=== PATIENT | male | born 1975 | race American Indian/Alaskan Native ===

== ENCOUNTER 2021-05-03 06:02 | Day surgery (SDC) | payer BC ==
[~2021-05-03 06:02] MED LIST: LACTATED RINGERS 1,000 ML IV SCH; MIDAZOLAM 2 MG/2 ML INJ IV NR
[2021-05-03] MEDS ORDERED: FAMOTIDINE 20 MG/2 ML INJ IV ONE (07:25)
--- NOTE | 2021-05-03 07:25 | Anesthesia Consultation ---
Anesthesia Consult and Med Hx Date of service: 05/03/21 - Airway Anesthetic Teeth Evaluation: Good, Crowns ROM Head & Neck: Adequate Mental/Hyoid Distance: Adequate Mallampati Class: Class III Intubation Access Assessment: Possibly Difficult - Pre-Operative Health Status ASA Pre-Surgery Classification: ASA3 Proposed Anesthetic Plan: MAC - Pulmonary Hx Smoking: Yes (DAILY MARIJUANA) Hx Sleep Apnea: Yes (DX SLEEP APNEA WITH CPAP USE) - Cardiovascular System Hx Hypertension: ("WATCHING", NOT YET DX , NO MEDS) - Gastrointestinal Hx Gastroesophageal Reflux Disease: Yes (takes meds) - Endocrine Hx Liver Disease: Yes (FATTY LIVER) - Hematic Hx Anemia: No - Other Systems Hx Substance Use: Yes (DAILY MARIJUANA) Hx Cancer: No Hx Obesity: Yes (Morbid obesity, BMI 38.5)
--- NOTE | 2021-05-03 07:26 | Anesthesia Day of Surgery ---
Anesthesia Day of Surgery - Day of Surgery Patient Examined: Yes Patient H&P Reviewed: Yes Patient is NPO: Yes
[2021-05-03] MEDS ORDERED: ceFAZolin/STERILE WATER 2 GM/20 ML SYRINGE IV NR (07:30)
[2021-05-03] MEDS ORDERED: HYDROcodone/ACETAMINOPHEN 5-325 MG TAB PO PRN (07:30)
[2021-05-03] MEDS ORDERED: propofoL 200 MG/20 ML VIAL IV ONE ×2 (07:30→07:36)
[2021-05-03] MEDS ORDERED: HYDROmorphone 1 MG/1 ML INJ ONE (07:30)
[2021-05-03] MEDS ORDERED: MIDAZOLAM 2 MG/2 ML INJ ONE (07:30)
[2021-05-03] MEDS ORDERED: HYDROmorphone 1 MG/1 ML INJ IV PRN (07:30)
[2021-05-03] MEDS ORDERED: LIDOCAINE MPF (2%) 20 MG/1 ML VIAL 5 ML ONE (07:31)
[2021-05-03] MEDS ORDERED: BUPIVACAINE/PF (0.25%) 2.5 MG/ML 30 ML VIAL INFILTRATI ONE ×2 (07:36→08:21)
[2021-05-03] MEDS ORDERED: LIDOCAINE (1%) 10 MG/1 ML VIAL 20 ML MDV ONE (07:36)
[2021-05-03] MEDS ORDERED: ceFAZolin/Water 2 GM/20 ML 2 GM/20 ML SYRINGE IV ONE (07:47)
[2021-05-03] MEDS ORDERED: FAMOTIDINE 20 MG/2 ML INJ IV NR (08:00)
[2021-05-03] MEDS ORDERED: SODIUM CHLORIDE 0.9% IRR 1,500 ML BOTTLE IR ONE (08:21)
[2021-05-03] MEDS ORDERED: LIDOCAINE (1%) 10 MG/1 ML VIAL 20 ML MDV INFILTRATI ONE (08:21)
[2021-05-03] MEDS ORDERED: ONDANSETRON 4 MG/2 ML INJ ONE (08:45)
--- NOTE | 2021-05-03 08:58 | Short Stay Summary ---
Short Stay Documentation Date of service: 05/03/21 - History Principal diagnosis: soft tissue mass of upper back H&P: obtained from office - Allergies and Medications Current Medications: Allergies No Known Allergies Allergy (Verified 04/25/21 16:39) Home Medications Medication Instructions Recorded Confirmed Last Taken Type Famotidine [Pepcid] 20 mg PO DAILY 04/25/21 05/03/21 05/02/21 History Ibuprofen [Motrin] 800 mg PO Q8HR PRN 04/25/21 04/25/21 Unknown History Active Medications Hydrocodone Bitart/Acetaminophen (Hydrocodone/Acetaminophen 5-325 Mg Tab) 2 each PO ONCE PRN PRN Reason: Pain, Moderate (4-6) Stop: 05/03/21 19:00 Famotidine (Famotidine 20 Mg/2 Ml Inj) 20 mg IV PREOP NR Stop: 05/03/21 21:00 Hydromorphone HCl (Hydromorphone 1 Mg/1 Ml Inj) 0.5 mg IV Q10MIN PRN PRN Reason: Pain , Severe (7-10) Stop: 05/03/21 18:00 Lactated Ringer's (Lactated Ringers) 1,000 mls @ 100 mls/hr IV DIRECT LORE Stop: 05/03/21 23:59 Last Admin: 05/03/21 07:07 Dose: 100 mls/hr Midazolam HCl (Midazolam 2 Mg/2 Ml Inj) 2 mg IV PREOP NR Stop: 05/03/21 23:59 - Brief post op/procedure progress note Date of procedure: 05/03/21 Pre-op diagnosis: soft tissue mass left upper back Post-op diagnosis: same Procedure: excision soft tissue mass left upper back Anesthesia: MAC, local Findings: 3.5 cm fatty subcutaneous mass of left upper back with chronic scar tissue Surgeon: KESHAWN MONAE Estimated blood loss: minimal Pathology: list (mass of left upper back) Specimen disposition: to lab Condition: stable - Hospital course Hospital course: Pt observed in PACU and discharged to home in stable condition - Disposition Condition at discharge: Good Disposition: 01 HOME / SELF CARE / HOMELESS Short Stay Discharge Plan Activity: no restrictions Diet: regular Wound: per your surgeon's advice Additional Instructions: SEE PRINTED DISCHARGE PAPERWORK Follow up with: PRIMARY CARE, [Primary Care Provider] - 7 Days KESHAWN MONAE DO [Staff Physician] - 14 Days Prescriptions: RX: traMADoL [Ultram 50 MG tab] 50 mg PO Q6HR PRN #5 tablet PRN Reason: Pain , Severe (7-10)
[2021-05-03 09:41] VITALS: BP 132/75
--- NOTE | 2021-05-03 09:58 | Post Anesthesia Evaluation ---
- Post Anesthesia Evaluation Patient Participated: Yes Airway Patent: Yes Stable Respiratory Function: Yes Nausea/Vomiting: No Temp > 96.8F: Yes Pain Manageable: Yes Adequeate Hydration: Yes Anesthesia Complications: No
--- NOTE | 2021-05-03 12:59 | Operative Report ---
Operative Report Operative Report: Date of procedure: 05/03/21 Pre-op diagnosis: soft tissue mass left upper back Post-op diagnosis: same Procedure: excision soft tissue mass left upper back Anesthesia: MAC, local Findings: 3.5 cm fatty subcutaneous mass of left upper back with chronic scar tissue Surgeon: KESHAWN MONAE Estimated blood loss: minimal Pathology: list (mass of left upper back) Specimen disposition: to lab Condition: stable Hospital course: Pt observed in PACU and discharged to home in stable condition Indication: Patient is a 46 yo M who presented to the office for a workup of a left upper back mass which was growing in size and becoming more uncomfortable especially when lifting and exercising. Elective excision was recommended. After all risks, benefits, alternatives to surgery were discussed and questions answered. Consent was signed in the office. Procedure in detail: Patient was identified in the preoperative area, taken back to the operating room, placed on the operating room table in prone position with all bony prominences padded appropriately.. After anesthesia was induced, the upper back was prepped and draped in usual sterile fashion and a timeout was performed. Local anesthetic was injected into the skin at the intended incision site. An transverse incision was made in the skin over the palpable mass using a 10 blade. Dissection was carried down through the skin using electrocautery. The mass was identified and appeared chronically scarred to the surrounding normal appearing subcutaneous tissue. Using a combination of blunt dissection with a hemostat and sharp dissection with metzenbaum scissors, the mass was carefully dissected away from the surrounding tissue circumferentially. Once normal fatty tissue was identified the mass in its entirety was removed from the subcutaneous tissue using Bovie electrocautery. This was then passed off the table as a specimen. The wound was then irrigated and hemostasis achieved with electrocautery. The mass measured approximately 3.5 cm. Once hemostasis was ensured, the deep dermal layer was closed using interrupted 3-0 Vicryl sutures. The skin was closed with 4-0 Monocryl subcuticular running stitch and skin glue. After the skin wound was dry, a piece of fluff gauze was placed over the incision and secured with medipore tape. At the end of the case, all sponge, instrument, sharp counts were correct 2. The patient was awoken from anesthesia and taken to PACU in stable condition.
== END 2021-05-03 10:15 | disposition home or self-care (01) ==
LOC: OR 06:02
PROVIDERS: ATTEND Surgery
DX: R22.2 Localized swelling, mass and lump, trunk (principal); D17.1 Benign lipomatous neoplasm of skin and subcutaneous tissue of trunk; G43.909 Migraine, unspecified, not intractable, without status migrainosus; K21.9 Gastro-esophageal reflux disease without esophagitis; K76.89 Other specified diseases of liver; E66.9 Obesity, unspecified; Z79.899 Other long term (current) drug therapy; Z98.890 Other specified postprocedural states; Z68.38 Body mass index [BMI] 38.0-38.9, adult
CPT/HCPCS: 21931; 88307; J0690; J1170; J2250; J2405; J2704; J3490; J7120